=== PATIENT | male | born 1960 | race Caucasian/White ===

== ENCOUNTER 2023-08-24 01:31 | Day surgery (SDC) | payer BC, SELFPAY ==
[2023-08-15 13:42] VITALS: BMI 22.2
--- NOTE | 2023-08-24 07:20 | P.HP_ITS ---
History of Present Illness History of Present Illness Consent: Risks, benefits, and alternatives have been discussed and questions answered. Patient agrees to proceed with procedure. Chief complaint: neoplasm screening Narrative: Donaldo Cruz is a 62 year old male was referred for colon cancer screening. Review of Systems Review of Systems: All systems reviewed & are unremarkable except as noted in HPI and below PMFSH Family History Family History Mother Patient's mother is in good health Father Hypertension Social History Social History Smoking status: Never smoker Second hand tobacco smoke exposure: No Alcohol intake: current Drinks per week: 6 Substance use: never Substance use type: does not use Lack of Transportation: No Lack of Food: Never True Current Housing: I Have Housing Concerned About Future Housing: No Difficulty Paying Gas/Electric Bills: No Difficulty Paying for Meds: No Currently Unemployed: No Education: High School Diploma/GED Difficulty w/ Childcare or Family Care: No Living arrangements: with family Spiritual care concerns: No Meds Home Medications and Allergies Home Medications Medication Instructions Recorded Confirmed Type aspirin 81 mg tablet,delayed 81 mg PO DAILY 11/17/19 08/24/23 History release (Adult Low Dose Aspirin) cholecalciferol (vitamin D3) 50 50 mcg PO DAILY #1 cap 07/21/21 08/24/23 Rx mcg (2,000 unit) capsule clopidogrel 75 mg tablet 75 mg PO DAILY #90 tabs 04/10/23 08/24/23 Rx omeprazole magnesium 20 mg 20 mg PO DAILY 04/25/23 08/24/23 History tablet,delayed release (Prilosec OTC) rosuvastatin 40 mg tablet (Crestor) 40 mg PO DAILY #90 tabs 04/25/23 08/24/23 Rx felodipine 5 mg tablet,extended 5 mg PO DAILY 08/24/23 08/24/23 History release 24 hr Allergies Allergy/AdvReac Type Severity Reaction Status Date / Time No Known Allergies Allergy Unknown Verified 08/24/23 08:07 Exam Const: General: alert Orientation/consciousness: patient oriented x3 Resp: Auscultation: clear to auscultation bilaterally Cardio: Rhythm: regular rhythm GI: GI Palp: Yes Soft to palpation and No Tenderness to palpation present (GI) Neuro: General: patient oriented x3 Assessment and Plan Assessment and plan (1) Screening for colon cancer: Code(s): Z12.11 - Encounter for screening for malignant neoplasm of colon Status: Acute Assessment and Plan: Colonoscopy with possible biopsy or polypectomy or cautery or injection of subst ances.
[2023-08-24 08:09] VITALS: BP 132/85; PULSE 71; RESP 20; TEMP 36.1; O2SAT 99
[2023-08-24] MEDS: LACTATED RINGERS 1,000 ML 150 ML IV CONT (08:12)
--- NOTE | 2023-08-24 08:39 | WPDANESEPPF ---
Anes - Initial Pre Proc Eval Procedure: Operation Date: 08/24/23 09:30 Proposed Procedures p Screening Colonoscopy - Raphael Hernandez MD Date/Time: 08/24/23 08:39 Surgeon: Raphael Hernandez MD Pre Op Diagnosis: neoplasm screening Patient Data Age: 62 Gender: M Height: 1.75 m Weight: 67 kg Last Vital Signs Temp 96.9 F L 08/24/23 08:09 Pulse 71 08/24/23 08:09 Resp 20 08/24/23 08:09 BP 132/85 08/24/23 08:09 Pulse Ox 99 08/24/23 08:09 O2 Del Method Room Air 08/24/23 08:09 Allergies Allergy/AdvReac Type Severity Reaction Status Date / Time No Known Allergies Allergy Unknown Verified 08/24/23 08:07 Home Medications Medication Instructions Recorded Confirmed Type aspirin 81 mg tablet,delayed 81 mg PO DAILY 11/17/19 08/24/23 History release (Adult Low Dose Aspirin) cholecalciferol (vitamin D3) 50 50 mcg PO DAILY #1 cap 07/21/21 08/24/23 Rx mcg (2,000 unit) capsule clopidogrel 75 mg tablet 75 mg PO DAILY #90 tabs 04/10/23 08/24/23 Rx omeprazole magnesium 20 mg 20 mg PO DAILY 04/25/23 08/24/23 History tablet,delayed release (Prilosec OTC) rosuvastatin 40 mg tablet (Crestor) 40 mg PO DAILY #90 tabs 04/25/23 08/24/23 Rx felodipine 5 mg tablet,extended 5 mg PO DAILY 08/24/23 08/24/23 History release 24 hr Patient hx anesthesia problems: none Family hx anesthesia problems: none Results Review: All pre-operative results and documents have been reviewed as part of the pre-operative evaluation. [facility] Family History Family History Mother Patient's mother is in good health Father Hypertension Social History Social History Smoking status: Never smoker Second hand tobacco smoke exposure: No Alcohol intake: current Drinks per week: 6 Substance use: never Substance use type: does not use Lack of Transportation: No Lack of Food: Never True Current Housing: I Have Housing Concerned About Future Housing: No Difficulty Paying Gas/Electric Bills: No Difficulty Paying for Meds: No Currently Unemployed: No Education: High School Diploma/GED Difficulty w/ Childcare or Family Care: No Living arrangements: with family Spiritual care concerns: No Anes - Eval Final PreProcedure Day of Procedure 08/24/23 08:39 Patient weight: normal Heart: regular rate and rhythm Lungs: clear to auscultation Airway: Mallampati scale class II Neurological: alert and oriented Last oral intake: >/= 8 hours ASA classification: III Emergent: no Anesthetic plan: proceed Anesthesia type and monitoring: general GIVS and standard monitoring Results Review: All pre-operative results and documents have been reviewed as part of the pre-operative evaluation. Informed Consent: The patient's anesthetic plan and its attendant risks and benefits were discussed with the patient/family/POA. Questions were solicited and answers provided to the satisfaction of the patient/family/POA.
[2023-08-24 09:32] VITALS: BP 103/63; PULSE 64; RESP 19; O2SAT 100
[2023-08-24 09:42] VITALS: BP 105/65; PULSE 60; RESP 16; O2SAT 98
[2023-08-24 09:52] VITALS: BP 115/75; PULSE 60; RESP 18; O2SAT 98
== END 2023-08-24 10:05 | disposition home or self-care (01) ==
PROVIDERS: PCP Family Medicine; Visit Provider Internal Medicine Gastroenterology
PROC: 0DJD8ZZ Inspection of Lower Intestinal Tract, Via Natural or Artificial Opening Endoscopic (ICD-10-PCS; CPT 45378; principal; 2023-08-24 09:30)
DX: Z12.11 Encounter for screening for malignant neoplasm of colon (principal); K64.8 Other hemorrhoids; K57.30 Diverticulosis of large intestine without perforation or abscess without bleeding; Z79.82 Long term (current) use of aspirin; Z79.02 Long term (current) use of antithrombotics/antiplatelets
CPT/HCPCS: 45378; J2704; J7120